=== PATIENT | female | born 1965 | race Caucasian/White ===

== ENCOUNTER 2025-06-14 02:04 | Inpatient (IN) | payer MEDICAID ==
[~2025-06-14] VITALS: Ht 160 cm; Wt 90.9 kg
[2025-06-14 02:43] LABS: PLATELET COUNT (AUTO) 308 K/uL (150-450); RED BLOOD CELL COUNT(AUTO) 4.33 MIL/uL (4.00-5.20); RED CELL DISTRIBUTION WIDTH 13.3 % (11.5-14.5); WHITE BLOOD COUNT (AUTO) 8.8 K/uL (4.5-11.0)
[2025-06-14 02:49] LABS: CALCIUM, TOTAL 8.5 mg/dL (8.8-10.5); CREATININE 0.51 mg/dL (0.60-1.30); GLOMERULAR FILTR. RATE CALC > 60 mL/min (>60); GLUCOSE,RANDOM 106 mg/dL (70-110); SODIUM SERUM 142 mmol/L (136-145); UREA NITROGEN, BLOOD 11 mg/dL (7-18)
[2025-06-14 02:59] LABS: TROPONIN I-HIGH SENSITIVITY 6 ng/L (<51)
[2025-06-14 04:16] LABS: APPEARANCE,URINE CLEAR (CLEAR); GLUCOSE, URINE (UA) NEGATIVE (NEGATIVE); LEUKOCYTE ESTERASE ,URINE NEGATIVE (NEGATIVE); NITRATE,URINE NEGATIVE (NEGATIVE); OCCULT BLOOD,URINE NEGATIVE (NEGATIVE); SPECIFIC GRAVITIY, URINE 1.005 (1.003-1.030)
[2025-06-14] MEDS ORDERED: LOSA-382 PO (07:32)
[2025-06-14] MEDS ORDERED: ARIP5TAB51 PO (07:39)
[2025-06-14 08:10] LABS: TROPONIN I-HIGH SENSITIVITY 6 ng/L (<51)
[2025-06-14 14:20] VITALS: BP 163/79; PULSE 70; RESP 18; TEMP 98.4; O2SAT 98
[2025-06-14] MEDS ORDERED: IPRATROPIUM BROMIDE 0.5 MG/2.5 ML NEB SOLUTION NEB PRN (16:45)
[2025-06-14] MEDS ORDERED: ZOLPIDEM TARTRATE 5 MG TABLET PO PRN (16:45)
[2025-06-14] MEDS ORDERED: BISACODYL 10 MG RECTAL RECTAL SUPPOSITORY PR PRN (16:45)
[2025-06-14] MEDS ORDERED: ONDANSETRON HCL 4 MG/2 ML VIAL IVP PRN (16:45)
[2025-06-14] MEDS ORDERED: MAGNESIUM HYDROXIDE SUSPENSION 30 ML UDCUP PO PRN (16:45)
[2025-06-14] MEDS ORDERED: ACETAMINOPHEN 325 MG TABLET PO PRN (16:45)
[2025-06-14] MEDS ORDERED: MORPHINE SULFATE 4 MG/ML SYRINGE IVP PRN (16:45)
[2025-06-14] MEDS ORDERED: HYDROCODONE/ACETAMINOPHEN 5-325 MG TABLET PO PRN (16:45)
[2025-06-14] MEDS ORDERED: ALBUTEROL SULFATE 2.5 MG/0.5 ML NEB SOLUTION NEB PRN (16:45)
[2025-06-14 20:08] VITALS: BP 163/69; PULSE 81; RESP 18; TEMP 98.1; O2SAT 96
[2025-06-14] MEDS: LOSARTAN POTASSIUM 50 MG TABLET PO SCH (20:48)
[2025-06-14] MEDS: HEPARIN SODIUM,PORCINE 5,000 UNITS/ML VIAL SQ SCH (23:46)
[2025-06-15 04:29] VITALS: BP 98/79; PULSE 83; RESP 18; TEMP 97.9; O2SAT 98
[2025-06-15 08:06] VITALS: BP 135/71; PULSE 66; RESP 18; TEMP 98.1; O2SAT 95
[2025-06-15] MEDS: PANTOPRAZOLE SODIUM 40 MG DR TABLET PO SCH (08:35)
== END 2025-06-15 11:00 | disposition left against medical advice (07) | DRG 199 ==
LOC: EMS 02:05 → EDH 06:42 → 6S 14:11
PROVIDERS: ADMIT Hospitalist; ATTEND Hospitalist
DX: I16.0 Hypertensive urgency (principal); F31.9 Bipolar disorder, unspecified; I49.1 Atrial premature depolarization; F43.10 Post-traumatic stress disorder, unspecified; I10 Essential (primary) hypertension; R06.09 Other forms of dyspnea; Z96.653 Presence of artificial knee joint, bilateral; Z53.29 Procedure and treatment not carried out because of patient's decision for other reasons; Z79.899 Other long term (current) drug therapy
CPT/HCPCS: 71045; 80048; 81003; 83735; 83880; 84484; 85025; 93005; 93306; 99285; J1644; 36415-L1; 36415-TC